=== PATIENT | female | born 2000 | race Caucasian/White ===

== ENCOUNTER 2025-01-19 18:26 | Emergency (ER) | payer BC, SELFPAY ==
[2025-01-19 18:31] VITALS: BP 142/66; PULSE 80; RESP 16; TEMP 36.8; O2SAT 97; BMI 27.4
--- NOTE | 2025-01-19 18:36 | DI.RAD.S_ITS ---
PROCEDURE: XR WRIST LT MIN 3V INDICATIONS: fall FOOSH wrist/forearm deform TECHNIQUE: 4 views of the wrist were acquired. COMPARISON: None. FINDINGS: Bones: There is a mildly comminuted, mildly displaced fracture of the distal left radius with possible mild intra-articular extension. Remainder of the visualized osseous structures appear intact. Soft tissues: No suspicious soft tissue calcifications. IMPRESSION: Mildly comminuted and displaced fracture of the distal left radius with possible mild intra-articular extension. Dictated by: Hugh Sue M.D. on 01/19/2025 at 20:30 Approved by: Hugh Sue M.D. on 01/19/2025 at 20:32
--- NOTE | 2025-01-19 18:36 | DI.RAD.S_ITS ---
PROCEDURE: XR FOREARM LT 2V INDICATIONS: fall FOOSH wrist/forearm deform TECHNIQUE: 2 views of the forearm were acquired. COMPARISON: None. FINDINGS: Bones: Comminuted, mildly displaced fracture of the distal left radius with suspected mild intra-articular extension. No suspicious osseous lesions. Other visualized osseous structures appear intact. Soft tissues: No suspicious soft tissue calcifications or masses. IMPRESSION: Comminuted fracture of the distal left radius with suspected mild intra- articular extension. Dictated by: Hugh Sue M.D. on 01/19/2025 at 20:29 Approved by: Hugh Sue M.D. on 01/19/2025 at 20:30
[2025-01-19] MEDS: IBUPROFEN 400 MG TABLET 800 MG PO (18:44)
[2025-01-19] MEDS: ACETAMINOPHEN 325 MG TABLET 975 MG PO (18:44)
[2025-01-19 22:03] VITALS: BP 125/79; PULSE 97; RESP 17; TEMP 36.8; O2SAT 99
--- NOTE | 2025-01-20 00:27 | ED_ITS ---
HPI - Extremity Injury (Upper) General Chief Complaint: Extremity Injury, Upper Stated Complaint: Lt wrist fell on, snapped Time Seen by Provider: 01/20/25 00:00 Source: patient Mode of arrival: Ambulatory Limitations: no limitations History of Present Illness HPI narrative: 24-year-old female history of hypothyroidism who had ground level fall on outstretched hand her to crack of the left wrist and forearm and has pain. Patient denies numbness or tingling. Has a increased pain of the wrist with movement of her thumb but not pain that is some itself. States has good range of motion with fingers but hurts to move her wrist. Patient denies any other injuries. No weakness. She sometimes takes thyroid medication but takes it intermittently has a history of IBS. Denies any major surgeries. No known drug allergies. Lives in the [facility]. She was accompanied by her mother. Related Data Allergies Allergy/AdvReac Type Severity Reaction Status Date / Time No Known Drug Allergies Allergy Verified 01/19/25 18:32 Review of Systems Review of Systems ROS Unobtainable: All systems reviewed & are unremarkable except as noted in HPI and below Exam Narrative Exam Narrative: GENERAL: Alert and oriented x three, female in mild distress HEENT: Head normocephalic, atraumatic, EOMI, pupils reactive, face symmetric, moist mucous membranes NECK: Supple, full range of motion CARDIOVASCULAR: Regular rate and rhythm without murmurs, rubs or gallops. RESPIRATORY: Breath sounds equal bilaterally, no wheezes rales or rhonchi. ABDOMEN: Soft, nontender. Normoactive bowel sounds all 4 quadrants. No guarding or rebound, rigidity, no mass : No CVA tenderness EXTREMITIES: Normal range of motion accepted left wrist, patient has 2+ radial pulse. Nontender through all 5 fingers, nontender in the carpal bones, tenderness at the wrist. No elbow tenderness, no humeral or shoulder tenderness. Full range of motion of all 5 fingers. No tenderness over the scaphoid. There is some mild swelling but no ecchymosis. No obvious deformity., no clubbing or edema. Neurovascularly intact NEUROLOGICAL: Cranial nerves II through XII grossly intact. Moving all extremities SKIN: Warm, dry, no petechiae, no rashes or lesions. Initial Vital Signs Initial Vital Signs: Vital Signs Temperature 98.2 F 01/19/25 18:31 Pulse Rate 80 01/19/25 18:31 Respiratory Rate 16 01/19/25 18:31 Blood Pressure 142/66 H 01/19/25 18:31 Pulse Oximetry 97 01/19/25 18:31 Oxygen Delivery Method Room Air 01/19/25 18:31 Course Orders Ordered: Discontinued Medications Acetaminophen (Acetaminophen 325 Mg Tablet) 975 mg PO NOW ONE Stop: 01/19/25 18:38 Last Admin: 01/19/25 18:44 Dose: 975 mg Documented By: KI Ibuprofen (Ibuprofen 400 Mg Tablet) 800 mg PO NOW ONE Stop: 01/19/25 18:38 Last Admin: 01/19/25 18:44 Dose: 800 mg Documented By: KI Tramadol HCl (Tramadol 50 Mg Prepack) 1 bottle MISC DIRECTED ONE Stop: 01/20/25 00:35 Last Admin: 01/20/25 01:05 Dose: 1 bottle Documented By: ANTIONETTE Vital Signs Vital signs: Vital Signs - 8 hr 01/20/25 01:09 Pulse Rate 84 Respiratory Rate 16 Blood Pressure 120/74 Pulse Oximetry 98 Oxygen Delivery Method Room Air MDM - Extremity Injury (Upper) MDM Narrative Medical decision making narrative: Left wrist x-ray shows mildly comminuted displaced fracture distal left radius with possible mild intra-articular extension. Left forearm x-ray comminuted fracture distal left radius with suspected mild intra-articular extension. Patient placed in splint, neurovascularly intact post and pre splint. The splint was placed by nursing. Was given referral for local orthopedic surgery but patient lives in [place] they will likely follow up more locally to themselves. Discussed return precautions all questions answered. Discharge Plan Departure Patient Disposition: Home Clinical Impression: Closed fracture of left wrist Instructions: DI for Wrist Fracture Activity Restrictions/Additional Instructions: Follow up with Orthopedic surgery, call in the morning to set up follow up. Contacts included below. You can take acetaminophen a 1000 mg every 6 hours and/or ibuprofen up to 600 mg every 6 hours as needed for pain. If inadequate for pain you can take narcotic pain medication 1 tablet every 6 hours as needed. This medication can make you sleepy do not drive, perform hazardous activities or make any major decisions while taking it. This medication will make you constipated please take a stool softener once to twice daily until stools are soft and regular. Splint Care: Keep splint clean and dry. Elevated affected body part to decrease swelling. OK to use ice pack on the affected body part. Use for 15-20 minutes each time, for 5-6x per day. If you develop worsening pain, numbness, tingling, discoloration of the affected body part, loosen the splint by loosening the CLEMENTE wrap, and either see your doctor for an urgent re-assessment, or return to the Emergency Department. Return to the Emergency Department for any new or worsening symptoms. Referrals: Mario Medina MD [Physician, Orthopedic Surgery] Stand Alone Forms: Patient Portal/API
[2025-01-20] MEDS: TRAMADOL 50 MG PREPACK 1 BOTTLE MISC (01:05)
[2025-01-20 01:09] VITALS: BP 120/74; PULSE 84; RESP 16; O2SAT 98
== END 2025-01-20 01:13 | disposition home or self-care (01) ==
PROVIDERS: Emergency Provider Emergency Medicine
DX: S52.502A Unspecified fracture of the lower end of left radius, initial encounter for closed fracture (principal); W19.XXXA Unspecified fall, initial encounter
CPT/HCPCS: 73090; 73110; 99283